=== PATIENT | female | born 1950 | race Caucasian/White ===

== ENCOUNTER → 2018-10-03 | Outpatient (CLI) | payer MEDICARE ==
[2018-10-03 18:16] LABS: THYROID STIMULATING HORMONE 0.117 uIU/ML (0.358-3.740)
== END ==
LOC: M LAB 16:17
DX: E03.1 Congenital hypothyroidism without goiter (principal)

== ENCOUNTER → 2019-09-12 | Emergency (ER) | payer MEDICARE, OTHER ==
[~2019-09-12] MED LIST: ATIV1TAB10 PO; FURO20TA2 PO; LIDOCAINE VISCOUS 2% SOLN 15ML UDC ONE; MELO15TA28 PO; METO1TAB7 PO; POTA10TA17 PO; ROSU5TAB5 PO
== END | disposition home or self-care (01) ==
LOC: M ED 22:40
DX: K20.9 Esophagitis, unspecified (principal); I10 Essential (primary) hypertension; E03.9 Hypothyroidism, unspecified; E78.5 Hyperlipidemia, unspecified; F41.9 Anxiety disorder, unspecified; Z88.5 Allergy status to narcotic agent; Z79.899 Other long term (current) drug therapy; Z79.890 Hormone replacement therapy

== ENCOUNTER 2019-11-23 21:08 | Emergency (ER) | payer MEDICARE, OTHER ==
[~2019-11-23] VITALS: Ht 167.6 cm; Wt 93.4 kg
[2019-11-23] MEDS ORDERED: ROSU5TAB5 PO (21:21)
[2019-11-23] MEDS ORDERED: MELO15TA28 PO (21:21)
[2019-11-23] MEDS ORDERED: FURO20TA2 PO (21:21)
[2019-11-23] MEDS ORDERED: METO1TAB7 PO (21:21)
[2019-11-23] MEDS ORDERED: POTA10TA17 PO (21:21)
[2019-11-23] MEDS ORDERED: ATIV1TAB10 PO (21:21)
--- NOTE | 2019-11-23 21:54 | REPVR ---
PROCEDURE INFORMATION: Exam: CT Head Without Contrast Exam date and time: 11/23/2019 9:44 PM Age: 69 years old Clinical indication: Pain; Headache; Additional info: Frontal headache, nausea, ? ich TECHNIQUE: Imaging protocol: Computed tomography of the head without contrast. Radiation optimization: All CT scans at this facility use at least one of these dose optimization techniques: automated exposure control; mA and/or kV adjustment per patient size (includes targeted exams where dose is matched to clinical indication); or iterative reconstruction. COMPARISON: No relevant prior studies available. FINDINGS: Brain: Trace acute subarachnoid hemorrhage versus parenchymal calcifications within the superior left frontal lobe. No evidence of mass effect or midline shift. Wan-white matter differentiation is intact. Cerebral ventricles: No ventriculomegaly. Bones/joints: Metallic density surgical implant within the left parietal bone. No acute fracture. Paranasal sinuses: Visualized sinuses are unremarkable. No fluid levels. Mastoid air cells: Unremarkable. Soft tissues: Unremarkable. IMPRESSION: Trace acute subarachnoid hemorrhage versus parenchymal calcifications within the superior left frontal lobe. Electronically signed by: Daniel Mixon On 11/23/2019 21:54:27 PM
[2019-11-23 22:07] LABS: BASO # 0.1 10^3/uL (0.0-0.2); BASO % 0.4 % (0.0-1.0); EOS # 0.3 10^3/uL (0.0-0.5); EOS % 1.8 % (0.0-3.0); HEMATOCRIT 42.5 % (36.0-47.0); LYMPH % 20.9 % (24.0-44.0); MEAN CORPUSCULAR HEMOGLOBIN 30.1 pg (27.0-33.0); MEAN CORPUSCULAR HGB CONC 32.9 g/dl (32.0-36.5); MEAN CORPUSCULAR VOLUME 91.4 fl (80.0-96.0); MONO # 1.1 10^3/uL (0.0-0.8); MONO % 7.6 % (0.0-5.0); NEUTROPHILS # 9.9 10^3/uL (1.5-8.5); NEUTROPHILS % 68.8 % (36.0-66.0); PLATELET COUNT, AUTOMATED 214 10^3/uL (150-450); RED BLOOD COUNT 4.65 10^6/uL (4.00-5.40); WHITE BLOOD COUNT 14.3 10^3/uL (4.0-10.0)
[2019-11-23 22:18] LABS: PROTHROMBIN TIME 13.4 SECONDS (12.5-14.3)
[2019-11-23 22:36] LABS: ERYTHROCYTE SEDIMENTATION RATE 7 mm/hr (0-30)
[2019-11-23 22:37] LABS: ALBUMIN 3.8 GM/DL (3.2-5.2); BILIRUBIN,DIRECT 0.2 MG/DL (0.0-0.2); BILIRUBIN,TOTAL 0.8 MG/DL (0.2-1.0); TOTAL PROTEIN 6.8 GM/DL (6.4-8.2)
[2019-11-23] MEDS ORDERED: ONDANSETRON 4MG/2ML VIAL IV ONE (22:45)
[2019-11-23 23:45] VITALS: BP 148/64
--- NOTE | 2019-11-24 20:48 | ECGEPIP ---
[facility] - ED Test Date: 2019-11-23 Pat Name: QUINTEN FRASER Department: Room: - Gender: Female Captain Waiter: christopher : 1950 Requested By: BROOKE [place] Order Number: [id number] Reading MD: Amanda Love Measurements Intervals [place] Rate: 64 P: 52 MS: 182 QRS: 9 QRSD: 100 T: 43 QT: 285 QTc: 295 Interpretive Statements SINUS RHYTHM WITH MARKED SINUS ARRHYTHMIA POSSIBLE LEFT ATRIAL ENLARGEMENT SEPTAL MYOCARDIAL INFARCTION, OF INDETERMINATE AGE NSTTW abnormalities NO PRIOR Electronically Signed on 11-24-2019 20:48:17 EDT by Amanda Love
== END 2019-11-24 00:06 | disposition short-term general hospital (02) ==
LOC: M ED 21:08
DX: I60.9 Nontraumatic subarachnoid hemorrhage, unspecified (principal); I11.9 Hypertensive heart disease without heart failure; E87.6 Hypokalemia; R94.31 Abnormal electrocardiogram [ECG] [EKG]; Z88.6 Allergy status to analgesic agent; Z88.8 Allergy status to other drugs, medicaments and biological substances; Z79.899 Other long term (current) drug therapy
CPT/HCPCS: 70450; 80047; 80076; 84484; 85025; 85610; 85652; 87486; 87581; 87633; 87798; 93005; 96374; 99284; J2405

== ENCOUNTER → 2020-07-28 | Outpatient (CLI) | payer MEDICARE, OTHER ==
[~2020-07-28] MED LIST changes: -LIDOCAINE VISCOUS 2% SOLN 15ML UDC ONE
[2020-07-28 16:45] LABS: FREE T4 0.99 NG/DL (0.76-1.46); THYROID STIMULATING HORMONE 1.45 uIU/ML (0.358-3.740)
== END ==
LOC: M LAB 15:30
PROVIDERS: ATTEND Internal Medicine Endocrinology, Diabetes & Metabolism
DX: E03.9 Hypothyroidism, unspecified (principal)

== ENCOUNTER → 2020-09-23 | Outpatient (CLI) | payer MEDICARE, OTHER ==
[2020-09-23 15:22] LABS: BLOOD UREA NITROGEN 16 MG/DL (7-18); CARBON DIOXIDE LEVEL 29 MEQ/L (21-32); CHLORIDE LEVEL 109 MEQ/L (98-107); CREATININE FOR GFR 0.74 MG/DL (0.55-1.30); GLOMERULAR FILTRATION RATE > 60.0 (>39); GLUCOSE, FASTING 97 MG/DL (70-100); SODIUM LEVEL 142 MEQ/L (136-145)
== END ==
LOC: M LAB 13:17
PROVIDERS: ATTEND Family Medicine
DX: M81.0 Age-related osteoporosis without current pathological fracture (principal)

== ENCOUNTER 2020-10-05 10:37 | Outpatient (CLI) | payer MEDICARE, OTHER ==
[~2020-10-05] VITALS: Ht 167.6 cm; Wt 90.9 kg
[2020-10-05 10:45] VITALS: BP 142/72
[2020-10-05] MEDS ORDERED: DENOSUMAB 60MG/1ML SYRINGE (PROLIA) (J0897 PER 1MG) SC ONE (11:00)
[2020-10-05] MEDS ORDERED: K-TA10TA2 PO (11:26)
[2020-10-05] MEDS ORDERED: VITAMIN D 3 PO ×2 (11:26→11:29)
[2020-10-05] MEDS ORDERED: LABE100T4 PO (11:26)
[2020-10-05] MEDS ORDERED: COQ-100C5 PO (11:29)
[2020-10-05] MEDS ORDERED: CIDA500T2 PO (11:29)
[2020-10-05 11:45] VITALS: BP 137/69
== END 2020-10-05 11:45 | disposition home or self-care (01) ==
LOC: M INFU 10:37
PROVIDERS: ATTEND Family Medicine
DX: M81.0 Age-related osteoporosis without current pathological fracture (principal); Z88.6 Allergy status to analgesic agent
CPT/HCPCS: 96372; J0897

== ENCOUNTER → 2021-08-24 | Outpatient (CLI) | payer MEDICARE, OTHER ==
[~2021-08-24] MED LIST changes: +CIDA500T2 PO; +COQ-100C5 PO; +K-TA10TA2 PO; +LABE100T4 PO; +VITAMIN D 3 PO
[2021-08-24 14:25] LABS: BLOOD UREA NITROGEN 15 MG/DL (7-18); CALCIUM LEVEL 9.3 MG/DL (8.8-10.2); CARBON DIOXIDE LEVEL 30 MEQ/L (21-32); CHLORIDE LEVEL 108 MEQ/L (98-107); CREATININE FOR GFR 0.84 MG/DL (0.55-1.30); FREE T4 0.94 NG/DL (0.76-1.46); GLOMERULAR FILTRATION RATE > 60.0 (>39); GLUCOSE, FASTING 119 MG/DL (70-100); POTASSIUM SERUM 4.1 MEQ/L (3.5-5.1); SODIUM LEVEL 143 MEQ/L (136-145)
== END ==
LOC: M LAB 12:16
PROVIDERS: ATTEND Internal Medicine Endocrinology, Diabetes & Metabolism
DX: M81.0 Age-related osteoporosis without current pathological fracture (principal); E03.9 Hypothyroidism, unspecified

== ENCOUNTER → 2021-10-12 | Outpatient (CLI) | payer MEDICARE, OTHER ==
[~2021-10-12] MED LIST changes: -LABE100T4 PO; +LABE100T6 PO; +POTA-150 PO; -POTA10TA17 PO
[2021-10-12 18:59] LABS: BLOOD UREA NITROGEN 15 MG/DL (7-18); CALCIUM LEVEL 9.4 MG/DL (8.8-10.2); CARBON DIOXIDE LEVEL 30 MEQ/L (21-32); CHLORIDE LEVEL 105 MEQ/L (98-107); CREATININE FOR GFR 0.92 MG/DL (0.55-1.30); FREE T4 1.03 NG/DL (0.76-1.46); GLOMERULAR FILTRATION RATE > 60.0 (>39); GLUCOSE, FASTING 130 MG/DL (70-100); POTASSIUM SERUM 3.4 MEQ/L (3.5-5.1); SODIUM LEVEL 140 MEQ/L (136-145)
[2021-10-12 19:46] LABS: TOTAL 25(OH) VITAMIN D 94.9 NG/ML (30.0-100.0)
== END ==
LOC: M LAB 17:23
PROVIDERS: ATTEND Internal Medicine Endocrinology, Diabetes & Metabolism
DX: E03.9 Hypothyroidism, unspecified (principal); M81.0 Age-related osteoporosis without current pathological fracture

== ENCOUNTER 2021-10-25 09:35 | Outpatient (CLI) | payer MEDICARE ==
[~2021-10-25] VITALS: Ht 167.6 cm; Wt 95.5 kg
[2021-10-25 09:30] VITALS: BP 135/62
[~2021-10-25 09:35] MED LIST changes: +DENOSUMAB 60MG/1ML SYRINGE (PROLIA) SC ONE
== END 2021-10-25 10:00 | disposition home or self-care (01) ==
LOC: M INFU 09:35
PROVIDERS: ATTEND Physician Assistant
DX: M81.0 Age-related osteoporosis without current pathological fracture (principal); Z88.6 Allergy status to analgesic agent; Z88.5 Allergy status to narcotic agent
CPT/HCPCS: 96372; J0897

== ENCOUNTER → 2022-09-26 | Outpatient (CLI) | payer MEDICARE, OTHER ==
[~2022-09-26] MED LIST changes: -DENOSUMAB 60MG/1ML SYRINGE (PROLIA) SC ONE; -K-TA10TA2 PO; +POTA-165 PO
[2022-09-26 16:02] LABS: BLOOD UREA NITROGEN 16 MG/DL (9-23); CALCIUM LEVEL 8.8 MG/DL (8.3-10.6); CARBON DIOXIDE LEVEL 26 MMOL/L (20-31); CHLORIDE LEVEL 108 MMOL/L (98-107); CREATININE FOR GFR 0.84 MG/DL (0.55-1.30); GLOMERULAR FILTRATION RATE > 60.0 (>39); GLUCOSE, FASTING 117 MG/DL (74-106); POTASSIUM SERUM 3.7 MMOL/L (3.5-5.1); SODIUM LEVEL 140 MMOL/L (136-145)
[2022-09-26 16:04] LABS: FREE T4 1.04 NG/DL (0.89-1.76); THYROID STIMULATING HORMONE 1.528 uIU/ML (0.55-4.78)
== END ==
LOC: M LAB 14:40
PROVIDERS: ATTEND Internal Medicine Endocrinology, Diabetes & Metabolism
DX: M81.0 Age-related osteoporosis without current pathological fracture (principal); E89.0 Postprocedural hypothyroidism

== ENCOUNTER 2022-10-17 16:49 | Outpatient (CLI) | payer MEDICARE, OTHER ==
[~2022-10-17] VITALS: Ht 167.6 cm; Wt 95.5 kg
[2022-10-17] MEDS ORDERED: DENOSUMAB 60MG/1ML SYRINGE (PROLIA) SC ONE (17:00)
[2022-10-17 17:02] VITALS: BP 141/63; O2SAT 96
== END 2022-10-17 17:35 ==
LOC: M INFU 16:49
PROVIDERS: ATTEND Internal Medicine Endocrinology, Diabetes & Metabolism
DX: M81.0 Age-related osteoporosis without current pathological fracture (principal); Z88.5 Allergy status to narcotic agent; Z88.6 Allergy status to analgesic agent
CPT/HCPCS: 96372; J0897